=== PATIENT | female | born 1935 | race Caucasian/White ===

== ENCOUNTER → 2018-06-22 | Outpatient (CLI) | payer MEDICARE, OTHER ==
[~2018-06-22] MED LIST: ALPR.5; BELPHEELB; BUPR150ER PO; Bactrim Ds Tab1 EACH PO; CALCAVITD PO; CLON.1 PO; DHE; DIPATR PO; DIPH50; DONE10 PO; ESTRACE; NALT50; Norco 5-325 Ta1 EACH PO; OMEP40CA12 PO; PROGESTERONE; Percocet 5-3251 EACH PO; RANI150; TOPI50 PO; Zofran Odt4 MG SL
== END | disposition home or self-care (01) ==
LOC: LAB SHORT 13:17 → PLD 13:17
DX: L82.1 Other seborrheic keratosis (principal)
CPT/HCPCS: 88305

== ENCOUNTER → 2018-12-21 | Outpatient (CLI) | payer MEDICARE, OTHER | END | disposition home or self-care (01) | LOC: LAB SHORT 08:31 → PLD 08:31 | DX: D48.5 Neoplasm of uncertain behavior of skin (principal) | CPT/HCPCS: 88305 ==

== ENCOUNTER → 2018-12-30 | Outpatient (CLI) | payer MEDICARE, OTHER | END | disposition home or self-care (01) | LOC: LAB SHORT 08:08 → PLD 08:08 | DX: L72.8 Other follicular cysts of the skin and subcutaneous tissue (principal) | CPT/HCPCS: 88304 ==

== ENCOUNTER → 2019-04-29 | Outpatient (CLI) | payer MEDICARE, OTHER ==
[2019-04-29 11:12] LABS: Source, Urine Clean Catch
[2019-04-29 12:01] LABS: Bilirubin, Urine Neg (Neg); Blood, Urine 1+ (Neg); Glucose Qualitative, Urine Neg (Neg); Ketones, Urine Neg (Neg); Leukocyte Esterase, Urine 3+ (Neg); Nitrite, Urine Pos (Neg); Protein, Urine Neg (Neg); Urobilinogen, Urine NORM (Normal)
[2019-04-29 12:14] LABS: Appearance, Urine Hazy (Clear); Color, Urine Yellow (P-Yellow)
[2019-04-29 12:16] LABS: Bacteria Many /hpf; Red Blood Cells, Urine 0-2 /hpf (0-2); Squamous Epithelial Cells Rare /hpf (Few); White Blood Cells, Urine 25-50 /hpf (0-5)
[2019-04-29 12:17] LABS: Mucus Light (0-Heavy)
== END ==
LOC: LAB 11:10 → LAB SHORT 11:10
PROVIDERS: Nurse Practitioner Family
DX: R35.0 Frequency of micturition (principal)
CPT/HCPCS: 81001

== ENCOUNTER → 2019-07-13 | Outpatient (CLI) | payer MEDICARE, OTHER ==
[2019-07-13 14:15] LABS: Source, Urine Clean Catch
[2019-07-13 17:40] LABS: Bilirubin, Urine Neg (Neg); Blood, Urine Neg (Neg); Glucose Qualitative, Urine Neg (Neg); Ketones, Urine Neg (Neg); Leukocyte Esterase, Urine Neg (Neg); Nitrite, Urine Neg (Neg); Protein, Urine 1+ (Neg); Urobilinogen, Urine NORM (Normal)
[2019-07-13 17:45] LABS: Appearance, Urine Clear (Clear); Color, Urine Yellow (P-Yellow)
== END ==
LOC: LAB SHORT 14:12 → LAB 14:12
PROVIDERS: Nurse Practitioner Family
DX: K52.9 Noninfective gastroenteritis and colitis, unspecified (principal)
CPT/HCPCS: 81003

== ENCOUNTER → 2019-07-14 | Outpatient (CLI) | payer MEDICARE, OTHER ==
[2019-07-14 14:10] LABS: Campylobacter Sp Not Detected (NOT DETECT); E. Coli O157 Not Detected (NOT DETECT); Enteroaggregative E. coli-EAEC Not Detected (NOT DETECT); Enteropathogenic E. coli-EPEC Not Detected (NOT DETECT); Enterotoxigenic E. coli-ETEC Not Detected (NOT DETECT); Plesiomonas Shigelloides Not Detected (NOT DETECT); Salmonella Sp Not Detected (NOT DETECT); Shiga Toxin-prod E. coli-STEC Not Detected (NOT DETECT); Shigella/Enteroin E. coli-EIEC Not Detected (NOT DETECT); Vibrio Cholerae Not Detected (NOT DETECT); Vibrio Sp Not Detected (NOT DETECT); Yersinia Enterocolitica Not Detected (NOT DETECT)
[2019-07-14 14:11] LABS: Adenovirus F 40/41 Not Detected (NOT DETECT); Astrovirus Not Detected (NOT DETECT); Cryptosporidium Not Detected (NOT DETECT); Cyclospora Cayetanensis Not Detected (NOT DETECT); Entamoeba Histolytica Not Detected (NOT DETECT); Giardia Lamblia Not Detected (NOT DETECT); Norovirus GI/GII Detected (NOT DETECT); Rotavirus A Not Detected (NOT DETECT); Sapovirus Not Detected (NOT DETECT)
== END ==
LOC: LAB SHORT 09:00 → LAB 09:00
PROVIDERS: Nurse Practitioner Family
DX: K52.9 Noninfective gastroenteritis and colitis, unspecified (principal)
CPT/HCPCS: 0097U

== ENCOUNTER → 2019-09-12 | Outpatient (CLI) | payer MEDICARE, OTHER ==
[2019-09-14 16:06] LABS: FATS, NEUTRAL Increased (.); FATS, TOTAL Increased (.)
== END | disposition home or self-care (01) ==
LOC: LAB SHORT 15:11 → OLS 15:11
PROVIDERS: Internal Medicine Gastroenterology
DX: K52.9 Noninfective gastroenteritis and colitis, unspecified (principal)
CPT/HCPCS: 82705; 83986; 83993

== ENCOUNTER 2020-02-16 06:22 | Day surgery (SDC) | payer MEDICARE, OTHER ==
[~2020-02-16] VITALS: Ht 154 cm; Wt 58.4 kg
[~2020-02-16 06:22] MED LIST changes: +AMLO10 PO; +CHLO25B PO; +CHOLP PO; +DONEPEZIL HCL10 MG PO; +ESTRADIOL PO; +GENPREOPSU LEFTEYE; +K-Phos Origina500 MG PO; +LEG CRAMPS PM SL; +MELA3 PO; +MONT10T PO; +Metamucil0.52 GM PO; +OMEP20ER PO; +POTASSIUM PO; +ROPI.25 PO; +TIMO.5OPSO LEFTEYE; +TOPI25 PO
--- NOTE | 2020-02-16 07:39 | NUR ---
Ambulatory in Day Surgery History, Chart, Medications and Allergies reviewed before start of procedure.Patient confirms NPO status and agrees with scheduled surgery. PT SOMEWHAT FORGETFUL. UNCERTAIN OF DOSES OF MEDICATIONS. REPORTS LIVES WITH DAUGHTER AND DAUGHTER MANAGES ALL MEDS. Patient reports completing Chlorhexadine shower X2 prior to admission to hospital.
[2020-02-16 08:11] LABS: Anion Gap 6 mmol/L (6-16); Blood Urea Nitrogen 19 mg/dL (8-24); Bun/Creatinine Ratio 22.2 (12.0-20.0); CO2, Blood 32 mmol/L (21-32); Calcium, Blood 8.8 mg/dL (8.5-10.1); Chloride, Blood 101 mmol/L (98-108); Creatinine, Blood 0.86 mg/dL (0.40-1.00); Glomerular Filtration Rate >60 (60-); Glucose, Blood 95 mg/dL (70-99); Potassium, Blood 2.9 mmol/L (3.5-5.5); Sodium, Blood 139 mmol/L (136-145)
--- NOTE | 2020-02-16 10:58 | NUR ---
1045- PT UPDATED ON REASON FOR DELAY IN SURGERY (EMERGENT )
--- NOTE | 2020-02-16 11:21 | NUR ---
PT UP TO BATHROOM. RETURNED, STATES COMFORTABLE IN BED WITH CALL LIGHT IN REACH.
--- NOTE | 2020-02-16 13:02 | NUR ---
02/16/20 1302 Joni Velazquez NO ANTIBIOTICS NEEDED FOR PROCEDURE
--- NOTE | 2020-02-16 14:52 | NUR ---
PT ARRIVED TO THE ROOM AT APPROXIMATELY 1440. SHE IS ALERT, ORIENTED AND PLEASANT. SHE IS HARD OF HEARING DESPITE HEARING AIDES IN PLACE. SHE COMPLAINS OF BEING THIRSTY SHE HAS BEEN PROVIDED WITH WATER AND ICE CHIPS. PT IS COMPLAINING OF PAIN ALTHOUGH SHE APPEARS COMFORTABLE AT REST AND IS SLIGHTLY DROWSY. PT WAS EDUCATED THAT ABOUT RISKS OF PAIN MEDICATION AND ABOUT PAIN MANAGEMENT OPTIONS. WILL PROVIDE K-PAD AND PO PAIN MEDICATION. SCANT SPOTTING ON YONNY PAD AT THIS TIME, VAG PACKING APPEARS TO BE IN PLACE. WILL CONTINUE TO MONITOR.
--- NOTE | 2020-02-16 16:42 | NUR ---
ARRIVED FROM PACU VIA [place], S/P LAP APPENDECTOMY, AWAKE, TRANSFERRED TO BED W/ STANDBY ASSIST, RATES PAIN AT 4/10, DENIES ANY NEED FOR PAIN MEDS AT THIS TIME, CLEAR LIQUIDS GIVEN, MONITOR VS AND ANY CHANGES, ASSIST PRN, MEDICATE FOR PAIN PRN.
--- NOTE | 2020-02-16 16:45 | NUR ---
BLEEDING PT WAS ASSISTED WITH REPOSITIONING, MODERATE BLEEDING NOTICED ON SHEETS UNDER PT. SHEETS AND PAD CHANGED. NEW PAD PLACED. BLEEDING WAS ASSESSED AT 1730, SHE STILL HAS MODERATE BLEEDING BUT IT APPEARS TO BE DECREASED FROM EARLIER. WILL CONTINUE TO MONITOR. DR. SOLIMAN NOTIFIED WILL CONTINUE TO MONITOR. PT'S VS ARE STABLE.
--- NOTE | 2020-02-16 18:36 | NUR ---
BLEEDING PT IS STILL HAVING VAGINAL BLEEDING. IT APPEARS TO BE DECREASING. WILL CONTINUE TO MONITOR.
--- NOTE | 2020-02-17 03:15 | NUR ---
PACKING: PT CALLED REQ PAD TO BE CHANGED. PAD W/SMALL AMT BLOOD PRESENT. PACKING FOUND BENEATH PT IN BALL. PT UNAWARE. PT CLEANED, NEW YONNY PAD PLACED.
[2020-02-17 03:59] LABS: BASOPHILS ABSOLUTE AUTO 0.02 K/mm3 (0.00-0.23); BASOPHILS PERCENT AUTO 0 % (0-2); EOSINOPHILS PERCENT AUTO 0 % (0-6); Hemoglobin 11.3 g/dL (11.5-16.0); IMMATURE GRAN ABSOLUTE AUTO 0.05 K/mm3 (0.00-0.10); IMMATURE GRAN PERCENT AUTO 0 % (0-1); LYMPHOCYTES ABSOLUTE AUTO 1.69 K/mm3 (0.84-5.20); LYMPHOCYTES PERCENT AUTO 13 % (21-46); MONOCYTES ABSOLUTE AUTO 0.65 K/mm3 (0.16-1.47); MONOCYTES PERCENT AUTO 5 % (4-13); Mean Corpuscular HGB Conc 32.3 g/dL (31.5-36.5); NEUTROPHILS ABSOLUTE AUTO 10.21 K/mm3 (1.96-9.15); NEUTROPHILS PERCENT AUTO 81 % (41-73); Platelet Count 245 K/mm3 (150-400); RDW Coefficient Variation 11.2 % (11.7-14.2); RDW Standard Deviation 38.2 fL (35.1-46.3); Red Blood Cell Count 3.77 M/mm3 (3.80-5.20); White Blood Cell Count 12.62 K/mm3 (4.00-11.30)
[2020-02-17 04:00] LABS: Mean Corpuscular Volume 93 fL (80-100)
[2020-02-17 04:22] LABS: Alanine Aminotransfer (ALT/SGP 13 U/L (12-78); Albumin, Blood 2.4 g/dL (3.4-5.0); Albumin/Globulin Ratio 0.8 (0.8-1.8); Alk Phos 46 U/L (50-136); Anion Gap 9 mmol/L (6-16); Aspartate Aminotrans (AST/SGOT 15 U/L (12-37); Bilirubin, Total 0.5 mg/dL (0.1-1.0); Blood Urea Nitrogen 20 mg/dL (8-24); Bun/Creatinine Ratio 23.4 (12.0-20.0); CO2, Blood 25 mmol/L (21-32); Calcium, Blood 7.8 mg/dL (8.5-10.1); Chloride, Blood 107 mmol/L (98-108); Creatinine, Blood 0.85 mg/dL (0.40-1.00); Glomerular Filtration Rate >60 (60-); Glucose, Blood 102 mg/dL (70-99); Potassium, Blood 3.4 mmol/L (3.5-5.5); Sodium, Blood 141 mmol/L (136-145); Total Protein, Blood 5.4 g/dL (6.4-8.2)
--- NOTE | 2020-02-17 05:27 | NUR ---
POD 1 S/P ANTERIOR REPAIR. PT VSS T/O NIGHT. BLEEDING DECREASED T/O NIGHT, PT ONLY HAVING SMALL AMT THIS AM. PAIN MGD W/TORADOL AND TYLENOL W/REP RELIEF. PT PATRICK REG PO, NO N/V. PLAN TO D/C HARTMAN CATH THIS AM. PT UP OOB W/1 ASSIST, IS USING CALL LIGHT FOR ASSISTANCE, WILL CONT TO MONITOR UNTIL REP GIVEN TO ONCOMING RN.
--- NOTE | 2020-02-17 12:30 | NUR ---
DISCHARGE PT ESCORTED OUT VIA W/C. STATES UNDERSTANDING OF INSTRUCTIONS. VOIDING WELL AT THIS TIME. SCANT BLOOD IN URINE. YONNY PADS SENT HOME. PT HAPPY FOR D/C HOME WITH DAUGHTER TO ASSIST.
== END 2020-02-17 12:32 | disposition home or self-care (01) ==
LOC: ORSCMMR 06:22 → ORD 07:30 → ORSCMMR 10:00 → SURS 14:59 → ORSCMMR 02-17 12:32
PROVIDERS: Anesthesiology; Obstetrics & Gynecology
PROC: 0JQC0ZZ Repair Pelvic Region Subcutaneous Tissue and Fascia, Open Approach (ICD-10-PCS; principal; 2020-02-16 10:00)
DX: N81.10 Cystocele, unspecified (principal); I10 Essential (primary) hypertension; J44.9 Chronic obstructive pulmonary disease, unspecified; Z79.899 Other long term (current) drug therapy; Z85.41 Personal history of malignant neoplasm of cervix uteri
CPT/HCPCS: 36415; 80048; 80053; 85025; A9270; A9270-GY; J0171; J1885; J3010; J3480; J7120

== ENCOUNTER → 2020-03-19 | Outpatient (CLI) | payer MEDICARE, OTHER | END | disposition home or self-care (01) | LOC: PLD 12:09 → LAB SHORT 12:09 | DX: L57.0 Actinic keratosis (principal) | CPT/HCPCS: 88305 ==

== ENCOUNTER 2020-07-27 10:08 | Day surgery (SDC) | payer MEDICARE, OTHER ==
[~2020-07-27] VITALS: Ht 154.9 cm; Wt 58.6 kg
--- NOTE | 2020-07-27 12:48 | NUR ---
07/27/20 1248 Joni Velazquez NO ANTIBIOTICS NEEDED
--- NOTE | 2020-07-27 18:34 | NUR ---
SHIFT SUMMARY PT A&OX4, VSS, KLUTI KAAH/CATARINA HEARING AIDS, DENTURES IN, S/P ANTERIOR REPAIR, PERIPAD CDI. HARTMAN PATENT & DRAINING YELLOW URINE, STAT LOCK ON, OFF FLOOR. PAIN MANAGED PER EMAR, 12/19. PATRICK PO, DENIES N&V. WILL REPORT TO ONCOMING NOC RN.
[2020-07-27] MEDS ORDERED: MELATONIN5 M1 PO (21:36)
[2020-07-27] MEDS ORDERED: POTA10T PO (21:39)
[2020-07-28 04:05] LABS: BASOPHILS ABSOLUTE AUTO 0.01 K/mm3 (0.00-0.23); BASOPHILS PERCENT AUTO 0 % (0-2); EOSINOPHILS PERCENT AUTO 0 % (0-6); Hematocrit 39.2 % (33.0-51.0); Hemoglobin 12.6 g/dL (11.5-16.0); IMMATURE GRAN ABSOLUTE AUTO 0.02 K/mm3 (0.00-0.10); IMMATURE GRAN PERCENT AUTO 0 % (0-1); LYMPHOCYTES ABSOLUTE AUTO 1.44 K/mm3 (0.84-5.20); LYMPHOCYTES PERCENT AUTO 15 % (21-46); MONOCYTES ABSOLUTE AUTO 0.43 K/mm3 (0.16-1.47); MONOCYTES PERCENT AUTO 4 % (4-13); Mean Corpuscular HGB 29.6 pg (26.0-34.0); Mean Corpuscular HGB Conc 32.1 g/dL (31.5-36.5); Mean Corpuscular Volume 92 fL (80-100); Mean Platelet Volume 9.1 fL (9.1-12.4); NEUTROPHILS ABSOLUTE AUTO 7.94 K/mm3 (1.96-9.15); NEUTROPHILS PERCENT AUTO 81 % (41-73); Platelet Count 286 K/mm3 (150-400); RDW Coefficient Variation 11.7 % (11.7-14.2); RDW Standard Deviation 39.5 fL (35.1-46.3); Red Blood Cell Count 4.25 M/mm3 (3.80-5.20); White Blood Cell Count 9.84 K/mm3 (4.00-11.30)
--- NOTE | 2020-07-28 06:05 | NUR ---
SHIFT SUMMARY: PT POD#1 ANTERIOR REPAIR. PT A&O X4. VS WNL. PT C/O HEADACHE IN BEGINNING OF SHIFT. MEDICATED WITH TORADOL PER EMAR. PT DENIES PAIN OTHERWISE. HARTMAN REMOVED THIS MORNING AT 0530. WAITING FOR POST VOID. SMALL TO MODERATE AMOUNT OF BLOODY DRG NOTED ON YONNY PAD AND SHEET THIS MORNING. PT ABLE TO AMBULATE WITH SBA. DENIES DIZZINESS. PACKING IN PLACE WITHOUT ORDER TO REMOVE. WILL CLARIFY REMOVAL OF PACKING WITH DR TODAY. PLAN FOR POSSIBLE DISCHARGE.
[2020-07-28 16:18] LABS: Source, Urine Catheter
[2020-07-28 16:30] LABS: Appearance, Urine Clear (Clear); Bilirubin, Urine Neg (Neg); Blood, Urine Neg (Neg); Color, Urine Yellow (P-Yellow); Glucose Qualitative, Urine Neg (Neg); Ketones, Urine Neg (Neg); Leukocyte Esterase, Urine 1+ (Neg); Nitrite, Urine Neg (Neg); Protein, Urine Neg (Neg); Specific Gravity, Urine 1.005 (1.003-1.022); Urobilinogen, Urine NORM (Normal); pH, Urine 6.5 (5.0-8.0)
[2020-07-28 17:04] LABS: Bacteria Many /hpf; Red Blood Cells, Urine Not Seen /hpf (0-2); Squamous Epithelial Cells Rare /hpf (Few); White Blood Cells, Urine 0-2 /hpf (0-5)
--- NOTE | 2020-07-28 17:08 | NUR ---
SUMMARY PT WAS UNSUCCESSFUL IN VOIDING TRIALS THIS SHIFT. PLACED HARTMAN FOR THREE HOURS PER ORDERS AFTER PT HAD BS OF 327 AND UNABLE TO VOID. DC'D AT 1245 PER ORDERS. BY 1529, PT ONLY ABLE TO VOID SCANT AMOUNT AND BS SHOWED OVER 500 ML. PLACED HARTMAN CATH FOR NIGHT PER ORDERS. HARTMAN DRAINING LIGHT YELLOW URINE. MEDICATED PT ONCE DURING SHIFT FOR DIXON AND ONCE FOR YONNY AREA PAIN PER ORDERS. PT RESTING IN BED, CALL LIGHT IN REACH.
--- NOTE | 2020-07-29 06:11 | NUR ---
POD 2 S/P ANTERIOR REPAIR. PT VSS. PT HAD VERY SCANT VAGINAL BLEEDING, REP PAIN MINIMAL, DECLINED NEED FOR PAIN MEDS. HARTMAN CATH D/C THIS AM; AWAITING FIRST VOID. PT PATRICK REG PO, NO N/V, BT ACTIVE. PT EDUCATED TO CALL FOR ASSISTANCE GETTING OOB.
[2020-07-29] MEDS ORDERED: IBU800 MG PO (14:08)
--- NOTE | 2020-07-29 14:20 | NUR ---
Patient to discharge home. IV out. Discharge instructions given, explained and signed. Patient to follow up with Dr. Laird. Patient denies questions or concerns at discharge. Patient denied wheelchair and ambulated out of hospital.
== END 2020-07-29 14:20 | disposition home or self-care (01) ==
LOC: ORSCMMR 10:08 → ORD 11:45 → ORSCMMR 11:45 → SURS 14:04 → ORSCMMR 07-29 14:20
PROVIDERS: Obstetrics & Gynecology
PROC: 0JQC0ZZ Repair Pelvic Region Subcutaneous Tissue and Fascia, Open Approach (ICD-10-PCS; principal; 2020-07-27 11:45)
DX: N81.10 Cystocele, unspecified (principal); N81.6 Rectocele; I10 Essential (primary) hypertension; K21.9 Gastro-esophageal reflux disease without esophagitis; N39.0 Urinary tract infection, site not specified; Z23 Encounter for immunization
CPT/HCPCS: 36415; 81001; 85025; 87077; 87086; 87186; A9270-GY; G0008; J0171; J1100; J1885; J2370; J2405; J2704; J3010; J7120; Q2038

== ENCOUNTER → 2020-11-21 | Outpatient (CLI) | payer MEDICARE, OTHER ==
[~2020-11-21] MED LIST changes: +IBU800 MG PO; +MELATONIN5 M1 PO; +POTA10T PO
== END ==
LOC: LAB SHORT 17:30 → LAB 17:30
DX: R82.90 Unspecified abnormal findings in urine (principal)
CPT/HCPCS: 87077; 87086; 87186

== ENCOUNTER → 2021-02-13 | Outpatient (CLI) | payer MEDICARE, OTHER | END | disposition home or self-care (01) | LOC: LAB SHORT 11:02 → LAB 11:02 | DX: H61.002 Unspecified perichondritis of left external ear (principal); L57.8 Other skin changes due to chronic exposure to nonionizing radiation | CPT/HCPCS: 88305 ==

== ENCOUNTER → 2022-02-17 | Outpatient (CLI) | payer MEDICARE, OTHER | END | disposition home or self-care (01) | LOC: PLD 12:09 → LAB SHORT 12:09 | DX: D48.5 Neoplasm of uncertain behavior of skin (principal) | CPT/HCPCS: 88305 ==

== ENCOUNTER 2022-04-24 08:41 | Day surgery (SDC) | payer MEDICARE, OTHER ==
[~2022-04-24 08:41] MED LIST changes: +BETIMOL5 ML BOTHEYES; +GABA100 PO; +K-PHOS PO
--- NOTE | 2022-04-24 09:14 | NUR ---
04/24/22 0914 Uche Myrick PT TESTED POSITIVE FOR COVID. SURGERY CANCELED PER DR. LEWIS.
== END 2022-04-24 09:14 | disposition home or self-care (01) ==
LOC: ORSCSDS 08:41
DX: K64.9 Unspecified hemorrhoids (principal); Z53.9 Procedure and treatment not carried out, unspecified reason
CPT/HCPCS: J2704; J7120

== ENCOUNTER 2025-07-26 17:36 | Emergency (ER) | payer OTHER, MEDICARE ==
[~2025-07-26] VITALS: Ht 154.9 cm; Wt 53.1 kg
[2025-07-26 17:46] VITALS: BP 139/65
[2025-07-26] MEDS ORDERED: Lidocaine/Tetracaine/Epinephr 3 ML GEL SYRINGE TOP ONE (17:50)
== END 2025-07-26 20:20 | disposition home or self-care (01) ==
LOC: ER 17:36
DX: S01.111A Laceration without foreign body of right eyelid and periocular area, initial encounter (principal); S60.041A Contusion of right ring finger without damage to nail, initial encounter; S80.212A Abrasion, left knee, initial encounter; S80.211A Abrasion, right knee, initial encounter; S60.512A Abrasion of left hand, initial encounter; S60.511A Abrasion of right hand, initial encounter; K21.9 Gastro-esophageal reflux disease without esophagitis; Z79.899 Other long term (current) drug therapy; W01.0XXA Fall on same level from slipping, tripping and stumbling without subsequent striking against object, initial encounter
CPT/HCPCS: 12011; 70450; 99284-25